=== PATIENT | male | born 1945 | race Caucasian/White ===

== ENCOUNTER → 2017-10-12 | Outpatient (CLI) | payer MEDICARE ==
[~2017-10-12] MED LIST: ASPI-715 PO; CEP500 PO; CLON0.5T66 PO; DIPH0.5D12 IM; DOXY-179 PO; ESCI10TA8 PO; ESCI20TA8 PO; EZET1TAB63 PO; FAM20 PO; FLAX100042 PO; FLU180SY9 IM; FLU45SYR25 IM ONLY; GUAI-204 PO; HYDR12.556 PO; IBU600 PO; LOR5/325 PO; LOSA-57 PO; PNEU0.5D3 IM; SIMV-49 PO; VALS-25 PO
[2017-10-12 10:09] LABS: PLATELET COUNT, AUTOMATED 196 K/uL (150-450)
[2017-10-12 10:23] LABS: LDL CHOLESTEROL 56 mg/dl
== END ==
LOC: LAB 09:45
PROVIDERS: ATTEND Internal Medicine
DX: Z12.5 Encounter for screening for malignant neoplasm of prostate (principal); E78.00 Pure hypercholesterolemia, unspecified; E03.9 Hypothyroidism, unspecified; I10 Essential (primary) hypertension; R74.8 Abnormal levels of other serum enzymes
CPT/HCPCS: 36415; 84443; 85025; G0103; 82040; 82247; 82310; 82374; 82435; 82465; 82565; 82947; 83718; 84075; 84132; 84153; 84155; 84295; 84450; 84460; 84478; 84520

== ENCOUNTER → 2017-10-20 | Outpatient (CLI) | payer MEDICARE ==
[~2017-10-20] MED LIST changes: +ESCI5TAB3 PO
--- NOTE | 2017-10-20 11:01 | RADIOLOGY IMAGING REPORT ---
FACILITY: [facility] PATIENT NAME: Ruddy Barrett : 1945 MR: [id number] V: [id number] EXAM DATE: ORDERING PHYSICIAN: DEE HANNA TECHNOLOGIST: Location: [facility] [place] Patient: Ruddy Barrett : 1945 Visit/Account:[id number] Date of Sevice: 10/20/2017 LIVER HISTORY: Benign liver cysts COMPARISON: Ultrasound October 30, 2016 FINDINGS: Gallbladder: Unremarkable; no stones or sludge. Liver: No hepatic cysts are identified at this time Common duct: Normal, four mm diameter. Pancreas: Partially obscured by bowel, visualized aspects unremarkable. Right kidney: Right kidney measures 10.6 cm in length with no evidence of hydronephrosis Upper abdominal aorta and IVC: Patent. Ascites: None visualized. IMPRESSION: No hepatic cysts are identified at this time Report Dictated By: Raisa Diaz MD at 10/20/2017 10:45 AM Report E-Signed By: Raisa Diaz MD at 10/20/2017 10:49 AM WSN:[id number]
== END ==
LOC: US 00:52
PROVIDERS: ATTEND Internal Medicine
DX: K76.89 Other specified diseases of liver (principal)
CPT/HCPCS: 76705

== ENCOUNTER → 2018-09-03 | Outpatient (CLI) | payer MEDICARE ==
[~2018-09-03] MED LIST changes: +FLU180SY11 IM
[2018-09-03 09:54] LABS: LDL CHOLESTEROL 58 mg/dl
== END ==
LOC: LAB 08:47
PROVIDERS: ATTEND Internal Medicine
DX: E78.00 Pure hypercholesterolemia, unspecified (principal); I10 Essential (primary) hypertension
CPT/HCPCS: 36415; 82040; 82247; 82310; 82374; 82435; 82465; 82565; 82947; 83718; 84075; 84132; 84155; 84295; 84450; 84460; 84478; 84520

== ENCOUNTER 2018-10-06 09:00 | Outpatient (RCR) | payer MEDICARE ==
--- NOTE | 2018-09-20 18:34 | PT INITIAL EVALUATION ---
MEDICAL DIAGNOSIS: M24.849 Locking finger joint TREATMENT DIAGNOSIS: Same, trigger finger DATE OF ONSET: 09/10/18 SUBJECTIVE: Ruddy Barrett presents to PT for insidious onset of L 4th flexor tendon trigger finger 10 days ago. He denies orthopedic injuries, including the L hand. He's right-handed. Quick DASH 61% impairment. 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 OBJECTIVE: Posture: L 4th finger MCP flexed 110 degrees ROM: L hand AROM WNL except L 4th finger, DIP, PIP 10 deg extension, WNL flexion, MCP extension -100 degrees, flexion 120 degrees. Strength: NT Palpation: Nodule, edema and acute pain in the L 4th flexor tendon proximal to the MCP, , painful also A1 and C0 pulleys and at the joint line. Special Tests: Deferred stretch, glide due to Ruddy's hesitancy and edema. ASSESSMENT: Ruddy Barrett presents wtih L 4th trigger finger at the FDP, A1 and C0 pulleys. His 4th MCP extension improved to 30 degrees after US, ice massage while pain remained 7/10. Short Term Goals/Patient's Goals One month: Ruddy drives, opens jars, grasps without L 4th finger tendon pain or catching. PLAN: Patient to be seen for Strengthening/condition, Ice/Heat, Range of Motion, Ultrasound/Phonophoresis with dexamethasone, Stretching, Electrical Stim, Home Exercise Program 3x/Week for 4 Weeks Thank you for this referral. If you have any questions, comments, or concerns about this report or plan, please contact me at . TUSHARD
[~2018-10-06 09:00] MED LIST changes: -DIPH0.5D12 IM; +DIPH0.5S2 IM
--- NOTE | 2018-10-06 09:41 | PT PLAN OF CARE ---
Physician: Dr. Enzo Dick Patient is being seen: 3x/week Therapist: Delia Camejo, BERTO Medical Diagnosis: M24.849 Locking finger joint Treatment Diagnosis: Same, trigger finger Date of Onset: 09/10/18 Date of Initial Evaluation: 09/20/18 Date patient was last seen: 10/06/18 Number of treatments: 8 Number of cancellations/No shows: 0 INTERVENTIONS: Phonophoresis with 0.4% dexamethasone, Manual therapy, Stretching, Strengthening, Ice, HEP GOALS/PATIENT'S GOAL: One month: Ruddy drives, opens jars, grasps without L 4th finger tendon pain or catching. 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 Posture: L 4th finger MCP resting angle 0 degrees, PIP 14 degrees. ROM: L hand AROM WNL including L 4th finger 14 degrees to full flexion, full fist, ape hand. Strength: Jean dynamometer, 2nd slot: R 62, 58, 55# (WNL), L 30, 25, 26# (2 SD < norm). Palpation: Unremarkable L 4th flexor tendon. Special Tests: Full stretch L 4th flexor tendon without catching or snapping. A/P: Ruddy Barrett has resolved his 4th flexor tendon edema and scar tissue to return to prior function. He has various strengths of Theraputty to continue strengthening his L hand for normal glove turner strength. I'll DC PT to HEP. Thank you. HELLEN
== END 2018-10-06 15:48 | disposition home or self-care (01) ==
LOC: PT 09:00
PROVIDERS: ATTEND Internal Medicine
DX: M65.342 Trigger finger, left ring finger (principal)
CPT/HCPCS: 97161